=== PATIENT | male | born 1975 | race Caucasian/White ===

== ENCOUNTER 2021-07-03 18:52 | Inpatient (IN) | payer BC, SELFPAY ==
--- NOTE | 2021-07-03 21:55 | PC.ADMIT ---
PT arrived to unit by stretcher at 7:15 pm, from [facility] due to hanging attempt. PT signed 3 day, no current SI/HI, PT Covid -, PT contracted for safety on unit. PT had BM today. PT oriented to unit and staff, PT teary at times, I feel bad for doing this to my Mom. PT is on a cardiac diet and wears O2 at night only to keep O2 above 90%.
[2021-07-03] MEDS: QUEtiapine Fumarate 50 MG TABLET PO (22:22)
[2021-07-03] MEDS: busPIRone HCl 5 MG TABLET 15 MG PO (22:22)
[2021-07-03] MEDS: Amoxicillin/Potassium Clav 875 MG TABLET PO (22:22)
[2021-07-03] MEDS: clonazePAM 1 MG TABLET PO (22:22)
[2021-07-03 22:35] VITALS: BP 128/90; PULSE 84; RESP 18; TEMP 36.6; O2SAT 96
[2021-07-04] VITALS (8 sets, daily range): BP systolic 117; BP diastolic 76; PULSE 73–83; RESP 18; TEMP 36.7; O2SAT 92–98
--- NOTE | 2021-07-04 06:07 | PC.NURSE ---
[id number] conversation with provider 02 not utilized and Sa02 monitored throughout the night. see VS documentation. pulses ranged between 73-75 with Sa02 between 92-94%.
[2021-07-04] MEDS: Magnesium Oxide 400 MG TABLET PO ×2 (08:27→21:42)
[2021-07-04] MEDS: hydroCHLOROthiazide 25 MG TABLET PO (08:27)
[2021-07-04] MEDS: NaPROXEN 500 MG TABLET PO (08:27)
[2021-07-04] MEDS: FLUoxetine HCl 20 MG CAPSULE 80 MG PO (08:28)
[2021-07-04] MEDS: Amoxicillin/Potassium Clav 875 MG TABLET PO ×2 (08:28→21:42)
--- NOTE | 2021-07-04 13:37 | PC.NURSE ---
Pt's Mother visited,good interaction noted. Pt gave his cell phone and ID.
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
[2021-07-04] MEDS: Nicotine Polacrilex 2 MG GUM BUCCAL (18:07)
[2021-07-04] MEDS: NaPROXEN 250 MG TABLET PO (21:42)
[2021-07-04] MEDS: busPIRone HCl 5 MG TABLET 15 MG PO (21:47)
[2021-07-04] MEDS: clonazePAM 1 MG TABLET PO (21:47)
[2021-07-04] MEDS: QUEtiapine Fumarate 50 MG TABLET PO (21:58)
[2021-07-05 08:48] LABS: Anion Gap 15 (12-20); Blood Urea Nitrogen 16 mg/dL (9-16); Calcium 9.1 mg/dL (8.4-10.2); Carbon Dioxide 28 mmol/L (22-29); Chloride 102 mmol/L (96-108); Estimated Glomerular Filt Rate > 60; Glucose Random 98 mg/dL (60-115); Potassium 4.6 mmol/L (3.3-5.1); Sodium 140 mmol/L (135-145)
[2021-07-05 09:58] VITALS: BP 123/73; PULSE 76; RESP 16; TEMP 36.9; O2SAT 99
[2021-07-05] MEDS: Amoxicillin/Potassium Clav 875 MG TABLET PO ×2 (10:02→22:30)
[2021-07-05] MEDS: Magnesium Oxide 400 MG TABLET PO ×2 (10:02→22:30)
[2021-07-05] MEDS: hydroCHLOROthiazide 25 MG TABLET PO (10:02)
[2021-07-05] MEDS: FLUoxetine HCl 20 MG CAPSULE 40 MG PO (10:02)
[2021-07-05] MEDS: NaPROXEN 250 MG TABLET PO ×2 (10:02→22:30)
[2021-07-05] MEDS: busPIRone HCl 5 MG TABLET 15 MG PO ×2 (10:02→22:30)
[2021-07-05] MEDS: Nicotine Polacrilex 2 MG GUM BUCCAL (13:30)
--- NOTE | 2021-07-05 14:30 | HO.PSYCHPN ---
Subjective Subjective Date of Service: 07/05/21 Reason For Visit: Unspecified depressive disorder Interim History: pt reports today is a hard day, as it is the actual day of the . he is feeling very helped by interactions with staff, however. he had a good visit with his mother last night. voluble as per usual. discussion had around how he takes his buspar, orders to be changed to be more in line with how he takes the medication at home. per staff, pt was up most of alli night talking to the night nurse. Mental Status Exam Mental Status Exam Narrative: dressed in street clothes. cooperative with interview. some PMA of excited gesticulations. speech incr in rate and amount, nml loudness, decr latency. thoughts linear and logical without signs of psychosis. affect flexible, consistent with context, normo-intense, non-labile. denies SI/SIBI. no HI/AVH expressed. Diagnostics Vital Signs (24Hr): Vital Signs - 24 hr 07/04/21 18:00 07/05/21 09:58 Temperature 98.0 F 98.5 F Pulse Rate 83 76 Respiratory Rate 18 16 Blood Pressure 117/76 123/73 Pulse Oximetry 98 99 Labs Results: 07/05/21 07:57 Labs: Laboratory Results - last 48 hr 07/05/21 07:57 Sodium 140 Potassium 4.6 Chloride 102 Carbon Dioxide 28 Anion Gap 15 BUN 16 Creatinine 0.96 Estim Creat Clear Calc TNP Estimated GFR > 60 Random Glucose 98 Calcium 9.1 Medications Medications Current Medications Generic Name Dose Route Start Last Admin Trade Name Freq PRN Reason Stop Dose Admin Acetaminophen 650 mg 07/03/21 20:53 Acetaminophen 325 Mg Tablet PO Q6H PRN Headache/Pain Mild Scale (1-3) Al Hydroxide/Mg Hydroxide 30 ml 07/03/21 20:53 Magnesium Hydrox/Alum Hydrox 30 Ml Oral.Susp PO Q6H PRN Heartburn/Nausea Amoxicillin/Clavulanate Potassium 875 mg 07/03/21 22:15 07/05/21 10:02 Amoxicillin/Potassium Clav 875 Mg Tablet PO 875 mg BID [facility] Administration Buspirone HCl 15 mg 07/03/21 21:51 07/05/21 10:02 Buspirone Hcl 5 Mg Tablet PO 15 mg TID PRN Administration Anxiety Clonazepam 1 mg 07/03/21 21:34 07/04/21 21:47 Clonazepam 1 Mg Tablet PO 1 mg BID PRN Administration Anxiety Fluoxetine HCl 40 mg 07/05/21 09:00 07/05/21 10:02 Fluoxetine Hcl 20 Mg Capsule PO 40 mg DAILY [facility] Administration Fluoxetine HCl 40 mg 07/04/21 12:45 Fluoxetine Hcl 20 Mg Capsule PO DAILY PRN serotonin deficit Hydrochlorothiazide 25 mg 07/04/21 09:00 07/05/21 10:02 Hydrochlorothiazide 25 Mg Tablet PO 25 mg DAILY [facility] Administration Magnesium Hydroxide 30 ml 07/03/21 20:53 Milk Of Magnesia 30 Ml Oral.Susp PO DAILY PRN Constipation Magnesium Oxide 400 mg 07/04/21 09:00 07/05/21 10:02 Magnesium Oxide 400 Mg Tablet PO 400 mg BID [facility] Administration Multi-Ingred Medicated Throat [place] 1 spray 07/03/21 21:52 07/05/21 13:30 Throat [place], Medicated 20 Ml Bottle MUCOUS MEM 1 spray Q3H PRN Administration Sore Throat Naproxen 250 mg 07/04/21 21:00 07/05/21 10:02 Naproxen 250 Mg Tablet PO 250 mg BID [facility] Administration Nicotine Polacrilex 2 mg 07/04/21 11:01 07/05/21 13:30 Nicotine Polacrilex 2 Mg Gum BUCCAL 2 mg Q1H PRN Administration Nicotine Cravings Quetiapine Fumarate 50 mg 07/03/21 22:15 07/04/21 21:58 Quetiapine Fumarate 50 Mg Tablet PO 50 mg BEDTIME [facility] Administration Allergies Allergies Allergy/AdvReac Type Severity Reaction Status Date / Time nut - unspecified Allergy Hives Verified 07/03/21 20:16 Assessment & Plan Assessment & Plan (1) Major depressive disorder with current active episode: Status: Acute Code(s): F32.9 - Major depressive disorder, single episode, unspecified Assessment and Plan: continue home medications.? provide respite and reconstitution period after suicide attempt. (2) Chronic posttraumatic stress disorder: Status: Acute Code(s): F43.12 - Post-traumatic stress disorder, chronic Assessment and Plan: continue home medications.? provide respite and reconstitution period after suicide attempt. (3) Hypertension: Status: Acute Code(s): I10 - Essential (primary) hypertension Assessment and Plan: This is a 45-year-old male with history of hypertension, chronic back pain, depression transferred from [facility] to the psychiatric floor following attempted suicide by hanging. Patient was found by his mother hanging from electrical wire. He was unresponsive and bagged EN route to [facility]. On arrival to the ED his GCS was 8 and he was intubated for airway protection. He was admitted to the MICU and treated for aspiration pneumonia. He was extubated on June 30. He was seen by the psych team at [facility] who recommended inpatient psychiatric care. Aspiration pneumonia Finish course of Augmentin as prescribed Patient's oxygen saturation was checked every hour overnight. No hypoxia noted, no indication for supplemental oxygen at this time Hypertension Blood pressure controlled -continue hydrochlorothiazide Chronic back pain Patient on meloxicam at home, non formulary. Has been receiving naproxen -recommend checking kidney function due to combination of NSAIDs and HCTZ -DC naproxen if renal function elevated -patient can bring meloxicam from home if able No other acute medical conditions at this time. Thank you for allowing us to participate in the care of this patient. Attending physician Dr. Pinon Greater than 50% of the session was spent on counseling and/or coordination of care Reason for contiued inpatient stay Substantial Risk for: harm to self
[2021-07-05] MEDS: clonazePAM 1 MG TABLET PO ×2 (15:16→22:30)
[2021-07-05 20:14] VITALS: BP 116/69; PULSE 75; TEMP 36.3; O2SAT 96
[2021-07-05] MEDS: QUEtiapine Fumarate 50 MG TABLET PO (22:30)
[2021-07-06] MEDS: Magnesium Oxide 400 MG TABLET PO ×2 (09:23→22:45)
[2021-07-06] MEDS: FLUoxetine HCl 20 MG CAPSULE 40 MG PO (09:27)
[2021-07-06] MEDS: hydroCHLOROthiazide 25 MG TABLET PO (09:31)
[2021-07-06] MEDS: NaPROXEN 250 MG TABLET PO ×2 (09:31→22:44)
[2021-07-06] MEDS: Amoxicillin/Potassium Clav 875 MG TABLET PO ×2 (09:32→22:45)
[2021-07-06] MEDS: busPIRone HCl 10 MG TABLET 30 MG PO (09:37)
[2021-07-06 09:42] VITALS: BP 123/91; PULSE 89; TEMP 36.8; O2SAT 99
--- NOTE | 2021-07-06 13:31 | P.PNPSI_ITS ---
Subjective Subjective Date of Service: 07/06/21 Reason For Visit: Unspecified depressive disorder Interim History: pt reports he made it through yesterday, had a good chat with his mother at the end of the day. very future-oriented, expressing a lot of gratitude and desire for connection to others. was having a call with his mother at the time of the interview, which he broke off in order to speak with MD. looking forward to [place] wednesday. feels fine, denies SI. per staff, less voluble in his speech (not evident from this MDs encounter with pt today). sad, slept well. 3-day matures wednesday. Mental Status Exam Mental Status Exam Narrative: dressed in street clothes. cooperative with interview. some PMA of excited gesticulations. speech incr in rate and amount, nml loudness, decr latency. thoughts linear and logical without signs of psychosis. affect flexible, consistent with context, normo-intense, non-labile. denies SI/SIBI. no HI/AVH expressed. Diagnostics Vital Signs (24Hr): Vital Signs - 24 hr 07/05/21 20:14 07/06/21 09:42 Temperature 97.3 F 98.2 F Pulse Rate 75 89 Blood Pressure 116/69 123/91 H Pulse Oximetry 96 99 Labs Results: 07/05/21 07:57 Labs: Laboratory Results - last 48 hr 07/05/21 07:57 Sodium 140 Potassium 4.6 Chloride 102 Carbon Dioxide 28 Anion Gap 15 BUN 16 Creatinine 0.96 Estim Creat Clear Calc TNP Estimated GFR > 60 Random Glucose 98 Calcium 9.1 Medications Medications Current Medications Generic Name Dose Route Start Last Admin Trade Name Aren PRN Reason Stop Dose Admin Acetaminophen 650 mg 07/03/21 20:53 Acetaminophen 325 Mg Tablet PO Q6H PRN Headache/Pain Mild Scale (1-3) Al Hydroxide/Mg Hydroxide 30 ml 07/03/21 20:53 Magnesium Hydrox/Alum Hydrox 30 Ml Oral.Susp PO Q6H PRN Heartburn/Nausea Amoxicillin/Clavulanate Potassium 875 mg 07/03/21 22:15 07/06/21 09:32 Amoxicillin/Potassium Clav 875 Mg Tablet PO 875 mg BID ALFRED Administration Buspirone HCl 30 mg 07/06/21 09:00 07/06/21 09:37 Buspirone Hcl 10 Mg Tablet PO 30 mg DAILY ALFRED Administration Buspirone HCl 15 mg 07/05/21 19:00 07/05/21 22:30 Buspirone Hcl 5 Mg Tablet PO 15 mg DAILY@1900 ALFRED Administration Clonazepam 1 mg 07/03/21 21:34 07/05/21 22:30 Clonazepam 1 Mg Tablet PO 1 mg BID PRN Administration Anxiety Fluoxetine HCl 40 mg 07/05/21 09:00 07/06/21 09:27 Fluoxetine Hcl 20 Mg Capsule PO 40 mg DAILY ALFRED Administration Fluoxetine HCl 40 mg 07/04/21 12:45 Fluoxetine Hcl 20 Mg Capsule PO DAILY PRN serotonin deficit Hydrochlorothiazide 25 mg 07/04/21 09:00 07/06/21 09:31 Hydrochlorothiazide 25 Mg Tablet PO 25 mg DAILY ALFRED Administration Magnesium Hydroxide 30 ml 07/03/21 20:53 Milk Of Magnesia 30 Ml Oral.Susp PO DAILY PRN Constipation Magnesium Oxide 400 mg 07/04/21 09:00 07/06/21 09:23 Magnesium Oxide 400 Mg Tablet PO 400 mg BID ALFRED Administration Multi-Ingred Medicated Throat [place] 1 spray 07/03/21 21:52 07/06/21 11:52 Throat [place], Medicated 20 Ml Bottle MUCOUS MEM 1 spray Q3H PRN Administration Sore Throat Naproxen 250 mg 07/04/21 21:00 07/06/21 09:31 Naproxen 250 Mg Tablet PO 250 mg BID ALFRED Administration Nicotine Polacrilex 2 mg 07/04/21 11:01 07/05/21 13:30 Nicotine Polacrilex 2 Mg Gum BUCCAL 2 mg Q1H PRN Administration Nicotine Cravings Quetiapine Fumarate 50 mg 07/03/21 22:15 07/05/21 22:30 Quetiapine Fumarate 50 Mg Tablet PO 50 mg BEDTIME ALFRED Administration Allergies Allergies Allergy/AdvReac Type Severity Reaction Status Date / Time nut - unspecified Allergy Hives Verified 07/03/21 20:16 Assessment & Plan Assessment & Plan (1) Major depressive disorder with current active episode: Status: Acute Code(s): F32.9 - Major depressive disorder, single episode, unspecified Assessment and Plan: continue home medications.? provide respite and reconstitution period after suicide attempt. no plan to file for commitment as pt appears future-oriented and has social supports. (2) Chronic posttraumatic stress disorder: Status: Acute Code(s): F43.12 - Post-traumatic stress disorder, chronic Assessment and Plan: continue home medications.? provide respite and reconstitution period after suicide attempt. (3) Hypertension: Status: Acute Code(s): I10 - Essential (primary) hypertension Assessment and Plan: This is a 45-year-old male with history of hypertension, chronic back pain, depression transferred from [facility] to the psychiatric floor following attempted suicide by hanging. Patient was found by his mother hanging from electrical wire. He was unresponsive and bagged EN route to [facility]. On arrival to the ED his GCS was 8 and he was intubated for airway protection. He was admitted to the MICU and treated for aspiration pneumonia. He was extubated on June 30. He was seen by the psych team at [facility] who recommended inpatient psychiatric care. Aspiration pneumonia Finish course of Augmentin as prescribed Patient's oxygen saturation was checked every hour overnight. No hypoxia noted, no indication for supplemental oxygen at this time Hypertension Blood pressure controlled -continue hydrochlorothiazide Chronic back pain Patient on meloxicam at home, non formulary. Has been receiving naproxen -recommend checking kidney function due to combination of NSAIDs and HCTZ -DC naproxen if renal function elevated -patient can bring meloxicam from home if able No other acute medical conditions at this time. Thank you for allowing us to participate in the care of this patient. Attending physician Dr. Pinon Greater than 50% of the session was spent on counseling and/or coordination of care Reason for contiued inpatient stay Substantial Risk for: harm to self
[2021-07-06] MEDS: Nicotine Polacrilex 2 MG GUM BUCCAL ×2 (16:05→21:58)
[2021-07-06] MEDS: clonazePAM 1 MG TABLET PO ×2 (16:05→22:45)
[2021-07-06 20:20] VITALS: BP 127/82; PULSE 86; RESP 18; TEMP 36.1; O2SAT 100
[2021-07-06] MEDS: Acetaminophen 325 MG TABLET 650 MG PO (20:55)
[2021-07-06] MEDS: busPIRone HCl 5 MG TABLET 15 MG PO (21:58)
[2021-07-06] MEDS: QUEtiapine Fumarate 50 MG TABLET PO (22:45)
[2021-07-07 06:00] VITALS: BP 145/72; PULSE 93; RESP 16; TEMP 36.6; O2SAT 99
[2021-07-07] MEDS: hydroCHLOROthiazide 25 MG TABLET PO (08:50)
[2021-07-07] MEDS: busPIRone HCl 10 MG TABLET 30 MG PO (08:50)
[2021-07-07] MEDS: NaPROXEN 250 MG TABLET PO ×2 (08:51→22:45)
[2021-07-07] MEDS: FLUoxetine HCl 20 MG CAPSULE 40 MG PO (08:51)
[2021-07-07] MEDS: Magnesium Oxide 400 MG TABLET PO ×2 (08:51→22:48)
[2021-07-07] MEDS: Amoxicillin/Potassium Clav 875 MG TABLET PO ×2 (08:51→22:45)
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
[2021-07-07] MEDS: Nicotine Polacrilex 2 MG GUM BUCCAL ×2 (12:05→22:08)
[2021-07-07] MEDS: clonazePAM 1 MG TABLET PO ×2 (15:20→22:45)
[2021-07-07] MEDS: busPIRone HCl 5 MG TABLET 15 MG PO (20:32)
[2021-07-07] MEDS: Acetaminophen 325 MG TABLET 650 MG PO (22:07)
[2021-07-07 22:36] VITALS: BP 133/59; PULSE 84; RESP 20; TEMP 36.5; O2SAT 100
[2021-07-07] MEDS: QUEtiapine Fumarate 50 MG TABLET PO (22:44)
[2021-07-08 06:00] VITALS: BP 123/79; PULSE 82; RESP 18; TEMP 36.2; O2SAT 99
[2021-07-08] MEDS: busPIRone HCl 10 MG TABLET 30 MG PO (09:19)
[2021-07-08] MEDS: NaPROXEN 250 MG TABLET PO (09:19)
[2021-07-08] MEDS: Magnesium Oxide 400 MG TABLET PO (09:19)
[2021-07-08] MEDS: hydroCHLOROthiazide 25 MG TABLET PO (09:19)
[2021-07-08] MEDS: Amoxicillin/Potassium Clav 875 MG TABLET PO (09:20)
[2021-07-08] MEDS: FLUoxetine HCl 20 MG CAPSULE 40 MG PO (09:20)
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
== END 2021-07-08 13:16 | disposition home or self-care (01) | DRG 754 ==
PROVIDERS: Physician Assistant Medical; Admitting Provider Psychiatry & Neurology Psychiatry; Visit Provider Psychiatry & Neurology Psychiatry
DX: F32.9 Major depressive disorder, single episode, unspecified (principal); J69.0 Pneumonitis due to inhalation of food and vomit; F17.210 Nicotine dependence, cigarettes, uncomplicated; I10 Essential (primary) hypertension; F43.12 Post-traumatic stress disorder, chronic; G89.29 Other chronic pain; Z71.6 Tobacco abuse counseling; Z91.5 Personal history of self-harm; M54.9 Dorsalgia, unspecified; Z79.1 Long term (current) use of non-steroidal anti-inflammatories (NSAID); Z79.899 Other long term (current) drug therapy
CPT/HCPCS: 36415; 80048